=== PATIENT | female | born 1965 | race Caucasian/White ===

== ENCOUNTER 2017-02-01 09:28 | Day surgery (SDC) | payer MEDICARE, MEDICAID ==
[~2017-02-01] VITALS: Ht 167.6 cm; Wt 74.8 kg
[~2017-02-01 09:28] MED LIST: DIAZ5TAB4 PO; HYDR-2762 PO; HYDROmorphone 2 MG/ML VIAL IV PRN; IV RINGERS,LACTATED 1000ML 1,000 ML IV SCH; LIDOCAINE 1% PF 2 ML VIAL. ID PRN; MORPHINE SULFATE 2 MG/ML DISP.SYRIN. IV PRN; ONDANSETRON PF 4 MG/2 ML VIAL. IV PRN; PROCHLORPERAZINE 10 MG/2 ML VIAL. IV PRN; ZOLP5TAB PO; fentaNYL PF VIAL 100 MCG/2 ML VIAL IV PRN
[2017-02-01] MEDS ORDERED: LIDOCAINE 1% PF 30 ML VIAL. ONE (09:44)
[2017-02-01] MEDS ORDERED: BUPIVAC MPF-EPI 0.5%-1:200000 30 ML VIAL. ONE (09:44)
[2017-02-01] MEDS ORDERED: BUPIVACAINE MPF 0.5% 30 ML VIAL. ONE (09:44)
[2017-02-01] MEDS ORDERED: fentaNYL PF VIAL 100 MCG/2 ML VIAL ONE (09:45)
[2017-02-01] MEDS ORDERED: MIDAZOLAM HCL/PF 2 MG/2 ML VIAL. ONE (09:45)
[2017-02-01] MEDS ORDERED: PROPOFOL 20 ML IV ONE (09:45)
[2017-02-01] MEDS ORDERED: LIDOCAINE 2% PF Vial for OR 5 ML VIAL. ONE (09:45)
[2017-02-01] MEDS ORDERED: ONDANSETRON PF 4 MG/2 ML VIAL. ONE ×2 (09:45)
[2017-02-01] MEDS ORDERED: DEXAMETHASONE SOD PHOS 20 MG/5 ML VIAL. ONE (09:45)
--- NOTE | 2017-02-01 10:41 | DISCH ---
DISCHARGE INSTRUCTIONS Condition on Discharge Condition on Discharge: Stable Activity After Discharge Activity Instructions for Disc: Other, see below Other activity instructions: no exercise or athletics Bathing Instructions: Shower-keep dressing dry Weight Bearing Status after Di: As tolerated Diet after Discharge Diet after Discharge: Regular Wound Incision Care Wound/Incision Care: Ice to area for comfort, Keep wound/cast CDI, Keep wound elevated, Change dressing Contacting the DR. after DC Call your doctor for: Concerns you may have Follow-Up Follow up with: Elio in 2 wks RON GREENE II, MD Feb 01, 2017 10:41
--- NOTE | 2017-02-01 11:38 | PDOC4 ---
Operative Note Operative Note Date of surgery 02/01/2017 Surgeon: Anthony Greene Preoperative diagnosis: Symptomatic hardware left ankle Postoperative diagnosis: Same Procedure performed: Removal of orthopedic implant, deep Tourniquet time: See OR records Blood loss: 10 mL Complications: None Findings stable external rotation stress test Reason for procedure: Patient is a 51-year-old female who underwent ORIF of her left ankle fracture and syndesmotic injury years ago. She developed pain and tenderness to palpation over her distal fibula. I had seen her in my outpatient clinic for complaints of knee and ankle pain. Radiographs demonstrated a healed fracture. We had a discussion of the risks, benefits, and alternatives to the above surgery and she elected to proceed. Description of procedure: Patient was greeted in the preoperative area by myself for the correct extremity was marked and verified. She was taken back to the operative suite and her antibiotics were started and row. Once in the OR she was transferred gently supine to the OR table and secured to the bed with all pressure points padded. She had successful induction of a general anesthetic. We placed a nonsterile tourniquet at her left upper thigh and then proceeded to prep and drape left lower extremity in our her usual sterile fashion and conducted our standard preoperative timeout. I then exsanguinated the extremity with an [place] and tourniquet was insufflated to 250 mmHg. After this, I incised skin through her prior skin incision and dissected subcutaneous tissue with [place] and electrocautery. I encountered the large suture ball from her syndesmotic fixation. I used a [place] to expose the plate and screw heads from the fibrotic tissue that was adherent to it. I expose the leg screws as well. I then removed the screws without complication. After this, I cut the suture and removed the syndesmotic fixation devices. I was unable to deliver the plate from the operative field. I removed the fibrotic tissue adjacent to bone and curetted out the holes. I then brought in C-arm to confirm hardware removal and performed my stress test which was negative. I then irrigated out the operative field in closed fashion with simple interrupted 2-0 Vicryl. Inverted interrupted 2-0 Vicryl was used for the subcutaneous tissue and 2-0 nylon in a mattress fashion for skin. Prior to accomplishing wound closure all counts correct 2. No complications. I injected about 20 mL of a local anesthetic mixture into the jonny-incisional area. The leg and ankle were cleansed and dried and a sterile dressing was applied. She was awakened from anesthesia and transferred gently supine to the recovery room cart and taken to PACU in a stable and extubated condition. Postoperative plan is for weightbearing as tolerated, no athletics or exercises for 6 weeks. We will see her back in 2 weeks in my clinic, sooner should a problem arise ANTHONY GREENE II, MD Feb 01, 2017 11:38
[2017-02-01] MEDS: fentaNYL PF VIAL 100 MCG/2 ML VIAL IV PRN ×4 (11:44→12:33)
[2017-02-01] MEDS ORDERED: oxyCODONE/APAP 5/325 1 TAB TABLET PO ONE (12:00)
[2017-02-01] MEDS ORDERED: OXYC-323 PO (12:26)
[2017-02-01] MEDS ORDERED: DOCU-109 PO (12:27)
[2017-02-01] MEDS ORDERED: ONDA4TAB10 SL (12:32)
[2017-02-01 12:43] VITALS: BP 113/71
== END 2017-02-01 13:29 | disposition home or self-care (01) ==
LOC: SURG 09:28
PROVIDERS: ATTEND Orthopaedic Surgery Sports Medicine
DX: T84.84XA Pain due to internal orthopedic prosthetic devices, implants and grafts, initial encounter (principal); E66.9 Obesity, unspecified; Z68.26 Body mass index [BMI] 26.0-26.9, adult; J45.909 Unspecified asthma, uncomplicated; Z98.51 Tubal ligation status; M19.90 Unspecified osteoarthritis, unspecified site; F41.9 Anxiety disorder, unspecified; F32.9 Major depressive disorder, single episode, unspecified; Z87.891 Personal history of nicotine dependence
CPT/HCPCS: 20680; 76000; A4215; J0690; J0780; J1100; J2250; J2405; J2704; J3010; J3490; J7120; J2001

== ENCOUNTER → 2017-04-24 | Outpatient (CLI) | payer MEDICARE, MEDICAID | END | disposition home or self-care (01) | LOC: KCIC MRI 10:02 | DX: S83.282A Other tear of lateral meniscus, current injury, left knee, initial encounter (principal); M17.12 Unilateral primary osteoarthritis, left knee; M25.462 Effusion, left knee; M94.262 Chondromalacia, left knee; X58.XXXA Exposure to other specified factors, initial encounter; Y93.89 Activity, other specified; Y92.89 Other specified places as the place of occurrence of the external cause; Y99.8 Other external cause status | CPT/HCPCS: 73721 ==

== ENCOUNTER → 2017-10-25 | Outpatient (CLI) | payer MEDICARE, MEDICAID ==
[~2017-10-25] MED LIST changes: +DOCU-109 PO; +HYDR-2802 PO; -HYDROmorphone 2 MG/ML VIAL IV PRN; -IV RINGERS,LACTATED 1000ML 1,000 ML IV SCH; -LIDOCAINE 1% PF 2 ML VIAL. ID PRN; -MORPHINE SULFATE 2 MG/ML DISP.SYRIN. IV PRN; +ONDA4TAB10 SL; -ONDANSETRON PF 4 MG/2 ML VIAL. IV PRN; +OXYC-323 PO; -PROCHLORPERAZINE 10 MG/2 ML VIAL. IV PRN; -fentaNYL PF VIAL 100 MCG/2 ML VIAL IV PRN
[2017-10-25 15:49] LABS: BASO % 0 % (0-3); EOS # 0.1 x10^3/uL (0.0-0.7); EOS % 1 % (0-3); HEMOGLOBIN 14.2 g/dL (12.0-15.5); LYMPH % 35 % (24-48); MEAN CORPUSCULAR HEMOGLOBIN 31 pg (25-35); MEAN CORPUSCULAR HGB CONC 35 g/dL (31-37); MEAN CORPUSCULAR VOLUME 90 fL (79-100); MONO # 0.5 x10^3/uL (0.0-1.1); MONO % 6 % (0-9); NEUT # 5.1 x10^3uL (1.8-7.7); NEUT % 59 % (31-73); PLATELET COUNT 274 x10^3/uL (140-400); RED BLOOD COUNT 4.58 x10^6/uL (3.50-5.40); RED CELL DISTRIBUTION WIDTH 12.7 % (11.5-14.5); WHITE BLOOD COUNT 8.7 x10^3/uL (4.0-11.0)
[2017-10-25 16:27] LABS: ALBUMIN 4.1 g/dL (3.4-5.0); CALCIUM 9.6 mg/dL (8.5-10.1); CREATININE 0.8 mg/dL (0.6-1.0); GFR 75.6; POTASSIUM 4.3 mmol/L (3.5-5.1); TOTAL BILIRUBIN 0.6 mg/dL (0.2-1.0); TOTAL PROTEIN 8.2 g/dL (6.4-8.2)
--- NOTE | 2017-10-25 17:04 | RAD ---
AP and Lateral Views of the Chest 10/25/2017 3:32 PM Indication: Preoperative, HYSTERECTOMY ON 11/01/17 Comparison: None available Findings: There is no focal consolidation or infiltrate identified. The cardiomediastinal silhouette is within normal limits. There is no evidence of pneumothorax or pleural effusion. Mild dextrocurvature of the inferior thoracic spine noted. No acute osseous abnormalities are identified. Impression: No evidence of acute cardiopulmonary process. Electronically signed by: Dawit Joy MD (10/25/2017 5:01 PM) [id number]
== END | disposition home or self-care (01) ==
LOC: SURGPAT 14:41
PROVIDERS: ATTEND Obstetrics & Gynecology
DX: Z01.818 Encounter for other preprocedural examination (principal); M17.12 Unilateral primary osteoarthritis, left knee; J45.909 Unspecified asthma, uncomplicated; E66.9 Obesity, unspecified; Z68.26 Body mass index [BMI] 26.0-26.9, adult; Z87.891 Personal history of nicotine dependence
CPT/HCPCS: 36415; 71046; 80053; 85025